=== PATIENT | male | born 1975 | race Caucasian/White ===

== ENCOUNTER 2016-08-09 19:31 | Emergency (ER) | payer OTHER ==
--- NOTE | 2016-08-09 19:45 | UCPHY ---
H & P Patient Type: New HPI/ROS: CHIEF COMPLAINT: Sore throat. HISTORY OF PRESENT ILLNESS: The patient is a 40-year-old male with recent strep throat contact who presents with sore throat for the past 4 days. The pain is located in the center. He denies associated fever, cough, rhinorrhea, or lymphadenopathy. He has only taken throat lozenges for the pain. REVIEW OF SYSTEMS: Aside from elements discussed in the HPI, a comprehensive 10-point review of systems was reviewed and is negative. PAST MEDICAL HISTORY: Hypothyroidism. SOCIAL HISTORY: Here alone. VITAL SIGNS: see nurse's notes. GENERAL: Well-developed, well-nourished, in no acute distress. HEENT: Atraumatic Eyes: PERRL, EOMI, no conjunctival injection. Ears: TM clear bilaterally. Nose: No discharge. Mouth: moist mucous membranes. Pharynx: Mild erythema and edema on hard palate. no erythema, no exudates, no swelling, no abscess. Uvula is midline. NECK: Supple, no adenopathy, no meningismus, no tenderness. Negative Kernig's and Brudzinski's. LUNGS: Clear to auscultation bilaterally, no wheezes, rhonchi or rales. CARDIAC: Regular rate and rhythm, no rubs, murmurs or gallops. ABDOMEN: Soft, nontender, bowel sounds normal. BACK: No CVA tenderness. EXTREMITIES: Normal, no edema, FROM. NEURO: Alert and oriented, grossly nonfocal. SKIN: Warm and dry, no rash. PSYCHIATRIC: Normal mentation, no agitation. Constitutional: Initial Vital Signs Temperature (C) 37.2 C 08/09/16 20:03 Heart Rate 57 L 08/09/16 20:03 Respiratory Rate 16 08/09/16 20:03 Blood Pressure 155/91 H 08/09/16 20:03 O2 Sat (%) 99 08/09/16 20:03 O2 Delivery Mode Room Air Allergies/Adverse Reactions: No Known Allergies Allergy (Unverified 07/16/10 21:36) Home Medications: Medication Instructions Recorded Aspirin 81mg 07/16/10 FISH OIL CONCENTRATE 07/16/10 Levothyroxine 07/16/10 Amoxicillin 500 mg PO TID 7 Days 08/09/16 Medical Decision Making - Data Points Laboratory Results: 08/09/16 08/09/16 Unknown 20:00 Group A Strep Screen NEGATIVE (NEGATIVE) Group A Strep DNA Pending Departure - Departure Disposition: Home, Routine, Self-Care Clinical Impression: Sore throat Condition: Good Instructions: Pharyngitis (ED) Additional Instructions: Both of your strep screens are negative. Mainstay of therapy will be to drink plenty of fluids, control your symptoms with [id number] medications, and get plenty of rest. If you have a fever, use Tylenol or ibuprofen. You may take both at the same time if needed. Adult Pain & Fever Control: We recommend Acetaminophen (Tylenol) and Ibuprofen (Motrin, Advil) for pain and fever control. When fever is high or pain severe, both drugs can be used at the same time, but at different intervals. Please note the time differences. Your dose is: Acetaminophen 650mg every 4 to 6 hours Ibuprofen 600mg every 8 hours with food. If you have a runny nose, take an antihistamine. If you are congested, take a decongestant. Take the Amoxicillin if your strep swab returns positive and you receive a call. For your sore throat you can try throat lozenges, throat sprays, or salt water gargles may also be helpful. Return to the Urgent Care or seek care urgently if your symptoms are worsening despite the above treatment, if you develop shortness of breath, if you're unable to drink fluids secondary to throat pain or other issues, if you have vomiting, diarrhea, or other concerns. Referrals: [place],. [Primary Care Provider] - As per Instructions Prescriptions: Amoxicillin 500 mg PO TID 7 Days - PQRS PQRS Measurement: Not applicable. Report Scribed for: Gloria Kearney Report Scribed by: Felice Rangel Date of Report: 08/09/16 Time of Report: 20:33
[2016-08-09 20:05] VITALS: BP 155/91; PULSE 57; RESP 16; TEMP 99; O2SAT 99
== END 2016-08-09 21:28 | disposition home or self-care (01) ==
LOC: CED 19:31
DX: J02.9 Acute pharyngitis, unspecified (principal); E03.9 Hypothyroidism, unspecified
CPT/HCPCS: 87880-PO; G0463-PO

== ENCOUNTER 2016-09-07 10:45 | Emergency (ER) | payer OTHER ==
--- NOTE | 2016-09-07 11:23 | UCPHY ---
H & P Time Seen by Provider: 09/07/16 10:47 Patient Type: Established HPI/ROS: 40-year-old male presents with cough, body aches fevers chills. Review of systems General positive fevers positive chills no weakness HEENT no eye pain no eye discharge. No eye redness, no sore throat Respiratory positive cough, no shortness of breath Cardiac no chest pain, no peripheral edema GI no abdominal pain, no diarrhea, no constipation, no nausea, no vomiting no flank pain, no hematuria, no dysuria Musculoskeletal positive myalgias, no joint pain Heme no easy bruising, no easy bleeding Endo no polyuria, no polydipsia Skin no rashes, no pruritus Neuro no syncope, no dizziness, no headaches Psych is no suicidal ideation, no homicidal ideation Past Medical/Surgical History: Hypothyroidism Social History: Her alcohol socially, denies drug use Smoking Status: Never smoked Physical Exam: 40-year-old male alert and oriented Alert and oriented nontoxic appearance, no acute distress afebrile Atraumatic normocephalic Extraocular muscles intact, anicteric Nares mild yellowish discharge Oropharynx mild erythema no tonsillar swelling no exudate no uvular deviation, tolerating own secretions Neck supple no lymphadenopathy Lungs clear to auscultation bilaterally Heart regular rate and rhythm Abdomen normoactive bowel sounds soft nontender Extremities no cyanosis clubbing or edema Skin no rash Constitutional: Initial Vital Signs Temperature (C) 37.9 C 09/07/16 11:02 Heart Rate 95 09/07/16 11:02 Respiratory Rate 20 09/07/16 11:02 Blood Pressure 167/82 H 09/07/16 11:02 O2 Sat (%) 95 09/07/16 11:02 O2 Delivery Mode Room Air Allergies/Adverse Reactions: No Known Allergies Allergy (Verified 09/07/16 11:01) Home Medications: Medication Instructions Recorded Levothyroxine 07/16/10 Oseltamivir Phosphate [Tamiflu 75 75 mg PO BID #10 cap 09/07/16 mg (*)] Medical Decision Making ED Course/Re-evaluation: Patient seen and evaluated for cough fevers body aches Physical exam with diminished breath sounds on the right Chest x-ray negative for pneumonia Influenza positive Impression Influenza a Plan Tamiflu Supportive care PCP - Data Points Laboratory Results: 09/07/16 10:57 Influenza Typ A,B (DFA) POSITIVE FOR FLU A H (NEGATIVE) Departure - Departure Disposition: Home, Routine, Self-Care Clinical Impression: Influenza A Condition: Good Instructions: Influenza (ED) Referrals: NONE *PRIMARY CARE P,. [Primary Care Provider] - As per Instructions Prescriptions: Oseltamivir Phosphate [Tamiflu 75 mg (*)] 75 mg PO BID #10 cap - PQRS PQRS Measurement: na
--- NOTE | 2016-09-07 11:49 | DX ---
PA and Lateral Chest X-ray 1124 hours History: Cough and fever with fatigue. Findings: Heart size and pulmonary vasculature are normal. The lungs are clear without infiltrates or effusions. There is no pneumothorax. The osseous structures are intact. Impression: Normal chest x-ray.
[2016-09-07 12:00] VITALS: BP 145/67; PULSE 82; RESP 18; TEMP 99.5; O2SAT 96
== END 2016-09-07 12:02 | disposition home or self-care (01) ==
LOC: CED 10:45
DX: J10.1 Influenza due to other identified influenza virus with other respiratory manifestations (principal); E03.9 Hypothyroidism, unspecified
CPT/HCPCS: 71020-PO; 87400-PO; 99214-PO; G0463-PO